=== PATIENT | female | born 2000 | race Caucasian/White ===

== ENCOUNTER 2024-05-21 06:48 | Emergency (ER) | payer MEDICAID ==
[~2024-05-21] VITALS: Ht 167.6 cm; Wt 54.5 kg
[2024-05-21] MEDS: LidoCAINE 2% Topical Jelly 11mL syringe (UROJET) TOP ONE (08:10)
[2024-05-21] MEDS ORDERED: AMOX-580 PO (09:00)
[2024-05-21] MEDS: amox tr/potassium clavulanate 875/125mg TAB PO ONE (09:07)
[2024-05-21 09:11] VITALS: BP 111/77; PULSE 85; RESP 16; TEMP 98.6; O2SAT 96
== END 2024-05-21 09:13 | disposition home or self-care (01) ==
LOC: ER 06:49
DX: S61.212A Laceration without foreign body of right middle finger without damage to nail, initial encounter (principal); Z79.2 Long term (current) use of antibiotics; W55.01XA Bitten by cat, initial encounter; Y93.89 Activity, other specified; Y92.89 Other specified places as the place of occurrence of the external cause; Y99.8 Other external cause status
CPT/HCPCS: 12001; 99283; J7030

== ENCOUNTER 2024-05-28 12:06 | Emergency (ER) | payer MEDICAID ==
[~2024-05-28] VITALS: Ht 167.6 cm; Wt 59.1 kg
[~2024-05-28 12:06] MED LIST: AMOX-580 PO
[2024-05-28 12:31] VITALS: BP 102/65; PULSE 106; RESP 16; TEMP 97.7; O2SAT 98
== END 2024-05-28 12:56 | disposition home or self-care (01) ==
LOC: ER 12:06
DX: S61.212D Laceration without foreign body of right middle finger without damage to nail, subsequent encounter (principal); Z79.2 Long term (current) use of antibiotics; W55.01XD Bitten by cat, subsequent encounter
CPT/HCPCS: 99281